=== PATIENT | male | born 1930 | race Caucasian/White ===

== ENCOUNTER 2017-10-15 10:40 | Inpatient (IN) | payer MEDICARE ==
[~2017-10-15] VITALS: Ht 167.6 cm; Wt 83.5 kg
[~2017-10-15 10:40] MED LIST: ALDACTAZID1 OR; ALEVE220 M1 PO; ASACOL400 MG PO; ASPIRIN EC81 MG PO; COMBIVENT IN; CRESTOR10 MG OR; CRESTOR10 MG PO; DULCOLAX SS100 MG PO; DULCOLAX STOOL SOFT PO; DULCOLAX5 MG PO; EC ASPIRIN325 MG PO; FLONASE NASAL50 MCG; LORCET HD 10-321 TAB PO; LORTAB 7.5 PO; LOSARTAN POT50 MG PO; METAMUCIL0.52 GM PO; METO25TAB PO; MORPHINE SUL15 MG PO; MUCINEX DM1 TAB OR; NAPROXEN250 MG PO; NASONEX50 MCG/AC; PERCOCET 10/31 COMBO PO; PERCOCET 5/325M1 TAB PO; PERCOCET1 TA4 PO; PRAVACHOL20 MG PO; PRAVASTATIN20 MG PO; PRILOSEC20 MG PO; PRIMIDONE50 MG PO; PROAIR HFA IN; REGLAN10 MG OR; RESTORIL15 MG PO; SPIRIVA IN; SYMBICORT1 AE1 IN; TRAMADOL HCL50 MG PO; TRICOR145 MG OR; TRICOR145 MG PO; TRIGLIDE160 MG PO; VICODIN HP1 TAB PO; VITAMIN D50000 UN1 PO; ZESTRIL10 MG PO; ZOLPIDEM10 MG OR; [UNRECOGNIZED DRUG - CODE] OR
--- NOTE | 2017-10-15 10:40 | NUR ---
TO ROOM 9 VIA STRETCHER BY EMS
--- NOTE | 2017-10-15 11:08 | NUR ---
CLEANED LACERATION AREA ON LEFT SIDE OF HEAD, SMALL PUNCTURE AREA WITH SWELLING WHERE PT HIT THE END TABLE WHEN HE FELL. PT DENIES PASSING OUT, STATES HE STARTED SHAKING MORE THAN NORMAL WHEN COMING OUT OF BATHROOM AND SLIPPED AND FELL.
[2017-10-15 11:28] LABS: HEMATOCRIT 43.3 % (39.0-50.0); HEMOGLOBIN 14.2 g/dl (14.0-18.0); IMMATURE GRANULOCYTES 0.4 % (0.0-1.0); MEAN CELL VOLUME 93.9 fL CALC (80.0-100.0); MEAN CORPUSCULAR HGB 30.8 pG CALC (26.0-32.0); MEAN CORPUSCULAR HGB CONC 32.8 g/L CALC (32.0-36.0); NEUT# 8.05 thou/uL (1.82-7.42); RED BLOOD COUNT 4.61 mill/uL (4.70-6.10); RED CELL DISTRI WIDTH 13.6 % (11.5-15.5)
--- NOTE | 2017-10-15 11:47 | NUR ---
PT BACK FROM XRAY
--- NOTE | 2017-10-15 11:56 | NUR ---
FAMILY AT BEDSIDE, PT REMAINS ALERT/ORIENTED X3, VERY TALKATIVE.
[2017-10-15 12:04] LABS: ALBUMIN 4.2 g/dL (3.2-5.0); BILIRUBIN, TOTAL 1.1 mg/dL (0.0-1.4); TOTAL PROTEIN 7.4 g/dL (6.3-8.2)
[2017-10-15 12:05] LABS: CREATININE 2.4 mg/dL (0.7-1.3); POTASSIUM 4.6 mmol/l (3.5-5.1)
[2017-10-15 12:46] LABS: URINE BLOOD DIPSTICK SMALL (NEGATIVE); URINE GLUCOSE - DIPSTICK NEGATIVE (NEGATIVE); URINE KETONE TRACE mg/dL (NEGATIVE); URINE LEUK ESTERASE NEGATIVE (NEGATIVE); URINE NITRITE - DIPSTICK NEGATIVE (Negative); URINE PROTEIN - DIPSTICK 30 mg/dL (NEG-TRACE)
[2017-10-15 12:47] LABS: URINE BILIRUBIN - DIPSTICK SMALL (NEGATIVE); URINE CLARITY SL CLOUDY; URINE COLOR DK. YELLOW
[2017-10-15 12:50] LABS: URINE EPITHELIAL CELLS MODERATE EPI/hpf (0-FEW); URINE MUCUS MODERATE hpf (NONE-FEW)
[2017-10-15] MEDS ORDERED: RYTARY 36.25-141 CAP PO (13:42)
--- NOTE | 2017-10-15 13:44 | NUR ---
PT RESTING QUIETLY, VITAL SIGNS STABLE
--- NOTE | 2017-10-15 14:02 | NUR ---
ADVISED TO PT THAT HE WOULD BE ADMITTED.
--- NOTE | 2017-10-15 14:28 | NUR ---
TRIED TO CALL REPORT, THEY STATED PRINTER IS BACKED UP AND SOON THEY GET THE SBAR THEY WILL CALL ME.
[2017-10-15 15:00] VITALS: BP 146/68
--- NOTE | 2017-10-15 15:00 | NUR ---
FROM ER VIA STRETCHER ACCOMPANIED BY FAMILY AND BRITTNI RN. TRANSFERRED TO BED WITH MAX ASSIST. RESPS EVEN AND UNLABORED ON ROOM AIR, TELE MONITOR IN PLACE. LACERATION NOTED TO LEFT SIDE HEAD, OCCIPITAL AREA, 1 STAPLE INTACT, RL, SCANT AMT REDDISH BROWN DRAINAGE NOTED. DENIES PAIN OR DISCOMFORT. ORIENTED TO ROOM AND CALL SYSTEM. SAFETY PRECAUTIONS REINFORCED. BED IN LOWEST POSITION WITH WHEELS LOCKED. CALL LIGHT WITHIN REACH. ENCOURAGED PT AND FAMILY TO CALL FOR ANY NEEDS.
--- NOTE | 2017-10-15 15:05 | NUR ---
PT TAKEN TO MED SURG FLOOR PER STRETCHER WITH TELEMETRY
[2017-10-15] MEDS ORDERED: FOLIC ACID1 MG PO (16:05)
--- NOTE | 2017-10-15 17:00 | NUR ---
ASSISTED TO BEDSIDE CHAIR WITH MAX ASSIST. RESPS EVEN AND UNLABORED ON ROOM AIR, TELE MONITOR IN PLACE. INCONTINENT OF LARGE AMT URINE, [facility] PROVIDED. CALL LIGHT WITHIN REACH. WILL CONTINUE TO MONITOR.
[2017-10-15 18:13] VITALS: BP 119/57
--- NOTE | 2017-10-15 19:50 | NUR ---
PT.IS IN BED W/LIGHTS LOW AND TV ON. NO S/S OF DISTRESS, PT.APPEARS TO BE SLEEPING. CALL LIGHT IS AT SIDE
--- NOTE | 2017-10-15 22:40 | NUR ---
ASSISTED PT.TO SIDE OF BED FOR USE OF URINAL, EMPTIED OF 100CC LIGHT DEMETRICE CLEAR URINE. PT.ASSISTED BACK TO BED AND BED ALARM PLACED ON. CALL LIGHT W/IN REACH
--- NOTE | 2017-10-16 00:15 | NUR ---
ED CALLED TO REPORT PT.SHOWING PAUSE/POSSIBLE BLOCK ON STAFF COUNSELOR. V/S ASSESSED, PT.ASYMPTOMATIC, EKG ORDERED WHICH SHOWED PVC'S SAME PREVIOUS EKG.
[2017-10-16 00:50] VITALS: BP 126/63
[2017-10-16 05:17] LABS: HEMATOCRIT 39.5 % (39.0-50.0); HEMOGLOBIN 13.1 g/dl (14.0-18.0); MEAN CELL VOLUME 93.4 fL CALC (80.0-100.0); MEAN CORPUSCULAR HGB CONC 33.2 g/L CALC (32.0-36.0); RED BLOOD COUNT 4.23 mill/uL (4.70-6.10); RED CELL DISTRI WIDTH 13.2 % (11.5-15.5)
[2017-10-16 05:23] LABS: ANION GAP 16 (6-22 (CALC)); BUN 29 mg/dL (8-23); BUN/CREATININE RATIO 29 (12-20 (CALC)); CARBON DIOXIDE 21 mmol/l (22-30); CHLORIDE 110 mmol/l (95-108); SODIUM 143 mmol/l (137-146)
[2017-10-16 05:32] LABS: GFR > 60 ML/MIN (>=60 (CALC)); GFR FOR AFR.AMER. > 60 ML/MIN (>=60 (CALC))
[2017-10-16 06:35] VITALS: BP 137/59
--- NOTE | 2017-10-16 07:00 | NUR ---
RECEIVED BEDSIDE REPORT FROM SHARON KURTZ. IN HIGH FOWLERS WATCHING TV. RESPS EVEN AND UNLABORED ON ROOM AIR, TELE MONITOR IN PLACE. #20 LAC INFUSING WITHOUT DIFFICULTY, SITE APPEARS HEALTHY. DENIES PAIN OR DISCOMFORT. PLAN OF CARE DISCUSSED. SAFETY PRECAUTIONS REINFORCED. BED IN LOWEST POSITION WITH WHEELS LOCKED. BED ALARM ON FOR SAFETY. CALL LIGHT WITHIN REACH. ENCOURAGED PT TO CALL FOR ANY NEEDS.
[2017-10-16 08:08] VITALS: BP 137/58
--- NOTE | 2017-10-16 09:30 | NUR ---
PT WAS ASSISTED BY REALTY SPECIALIST TO THE SHOWER AND WITH WALKER. PT HAS STEADY GAIT. PT WAS TOLD NOT TO GET UP UNLESS HE PULLS THE CORD PER THE FLOOR BEING SLICK. PT ALSO TOLD TO PULL THE CORD IF HE HAS ANY QUESTIONS OR COMMENTS OR CONCERNS. PT THEN WALKED BACK TO CHAIR WITH WALKER AND REALTY SPECIALIST. PT PLACED ON TELE AT THIS TIME. PT HAD NO COMPLAINTS. CALL LUNA IN REACH WITH BED ALARM IN PLACE PRECAUTION WELL.
--- NOTE | 2017-10-16 10:38 | NUR ---
Pharmacy consult requested by AMADA Hutchins. Reviewed inpatient and outpatient medications with pt. Significant other helps with medications at home. No othe questions or concerns. Encouraged pt to verbalize questions or concerns related to medications should they arise.
[2017-10-16 11:00] VITALS: BP 135/66
--- NOTE | 2017-10-16 12:35 | NUR ---
SITTING IN BEDSIDE CHAIR, FAMILY AT BEDSIDE. RESPS EVEN AND UNLABORED ON ROOM AIR, TELE MONITOR IN PLACE. #20 LAC INFUSING WITHOUT DIFFICULTY, SITE APPEARS HEALTHY. DR CHAVIRA AT BEDSIDE, NEW ORDERS RECEIVED. CALL LIGHT WITHIN REACH. ENCOURAGED PT AND FAMILY TO CALL FOR ANY NEEDS.
--- NOTE | 2017-10-16 16:00 | NUR ---
RESTING IN SEMI FOWLERS WATCHING TV. RESPS EVEN AND UNLABORED ON ROOM AIR, TELE MONITOR IN PLACE. #20 LAC INFUSING WITHOUT DIFFICULTY, SITE APPEARS HEALTHY. PO FLUIDS OFFERED. CALL LIGHT WITHIN REACH. WILL CONTINUE TO MONITOR.
[2017-10-16 16:05] VITALS: BP 149/70
[2017-10-16 19:00] VITALS: BP 140/63
--- NOTE | 2017-10-16 19:30 | NUR ---
BEDSIDE REPORT RECEIVED FROM JERARDO MARIE. PT RESTING IN BED SEMI FOWLERS WATCHING TV. DENIES PAIN CURRENTLY. LACERATION TO LEFT SIDE OF HEAD RL WITH ONE STAPLE PRESENT. RESPIRATIONS EVEN AND UNLABORED ON ROOM AIR. PLAN OF CARE DISCUSSED. PT ENCOURAGED TO VERBALIZE CONCERNS. STATES UNDERSTANDING. SAFETY MEASURES IN PLACE. CALL LIGHT WITHIN REACH.
[2017-10-17] VITALS (9 sets, daily range): BP systolic 126–188; BP diastolic 59–83
--- NOTE | 2017-10-17 00:07 | NUR ---
PT FOUND ATTEMPTING TO GET OUT OF BED UNASSISTED BEFORE BED ALARM SOUNDED. PT DISORIENTED AND STATES THAT HE SEES "THINGS" CRAWLING AROUND ON THE GROUD THAT ARE NOT THERE; PT LAUGHING ABOUT THIS. EASILY REORIENTED AND ASSITED TO THE BATHROOM TO VOID. DENIES PAIN. ASSISTED BACK TO BED. SAFETY MEASURES IN PLACE INCLUDING BED ALARM. CALL LIGHT WITHIN REACH.
--- NOTE | 2017-10-17 03:58 | NUR ---
PT UP TO VOID SEVERAL TIMES THROUGHOUT THE NIGHT; DOES NOT USE CALL LIGHT; BED ALARM SOUNDS WHEN PT ATTEMPTS TO GET OUT OF BED. DENIES PAIN CURRENLTY. RESPIRATIONS EVEN AND UNLABORED ON ROOM AIR. NO ACUTE CHANGES IN CONDITION THROUGHOUT THE NIGHT. IV FLUIDS INFUSING WITHOUT DIFFICULTY; IV SITE APPEARS HEALTHY. SAFETY MEASURES IN PLACE. CALL LIGHT WITHIN REACH.
[2017-10-17 05:06] LABS: HEMATOCRIT 41.1 % (39.0-50.0); HEMOGLOBIN 13.6 g/dl (14.0-18.0); IMMATURE GRANULOCYTES 0.3 % (0.0-1.0); MEAN CORPUSCULAR HGB 30.8 pG CALC (26.0-32.0); MEAN CORPUSCULAR HGB CONC 33.1 g/L CALC (32.0-36.0); NEUT# 5.24 thou/uL (1.82-7.42); RED BLOOD COUNT 4.42 mill/uL (4.70-6.10); RED CELL DISTRI WIDTH 13.2 % (11.5-15.5)
[2017-10-17 05:21] LABS: ANION GAP 17 (6-22 (CALC)); BUN 16 mg/dL (8-23); BUN/CREATININE RATIO 21 (12-20 (CALC)); CARBON DIOXIDE 23 mmol/l (22-30); CHLORIDE 109 mmol/l (95-108); CREATININE 0.8 mg/dL (0.7-1.3); GFR > 60 ML/MIN (>=60 (CALC)); GFR FOR AFR.AMER. > 60 ML/MIN (>=60 (CALC)); POTASSIUM 4.2 mmol/l (3.5-5.1); SODIUM 145 mmol/l (137-146)
[2017-10-17 05:30] LABS: MAGNESIUM 1.3 mg/dL (1.6-2.3)
--- NOTE | 2017-10-17 06:34 | NUR ---
PT AWAKENED WITH CONFUSION; REORIENTED AND ORTHOSTATIC VS PERFORMED. BLOOD PRESSURE ELEVATED AT THIS TIME AND HYDRALAZINE ADMINISTERED. PT ALSO STARTED WHEEZING AND REQUESTED HIS HOME INHALER; ORDER RECEIVED FROM TO RESTART PROAIR INHALER.
--- NOTE | 2017-10-17 07:05 | NUR ---
BEDSIDE REPORT RECEIVED BY FRANNY. PT IS SITTING IN RECLINER WITH NO S/S OF DISTRESS NOTED. BED ALARM IN PLACE AND CALL LIGHT IN REACH.
--- NOTE | 2017-10-17 08:05 | NUR ---
ASSESSMENT DONE. LUNG SOUND DIMINISHED. NS INFUSING WELL. PT DENIES PAIN AT THIS TIME. TELE IN PLACE. HEAD RL HAS ONE STAPLE. BED ALARM IN PLACE FOR SAFETY. SAFETY PRECAUTIONS REINFORCED AND CALL LIGHT IN REACH.
--- NOTE | 2017-10-17 11:20 | NUR ---
IN THE AM ASSESSMENT PT WAS A&O X3. NOW PT IS CONFUSED SITTING IN RECLINER WITH BEDALARM IN PLACE FOR SAFETY. DAUGHTER IS IN ROOM. JANEE JONES IN ROOM TO ASSESS PT. CALL LIGHT IN REACH.
--- NOTE | 2017-10-17 12:00 | NUR ---
PT IS SITTING IN RECLINER EATING HIS LUNCH WITH NO S/S OF DISTRESS NOTED. PT DENIES NEEDS AT THIS TIME. CALL LIGHT IN REAC AND BEDALARM IN PLACE.
--- NOTE | 2017-10-17 13:00 | NUR ---
PT SET BEDALARM OFF. PT STATED THAT HE WANTS TO SIT IN RECLINER. ASSISTED PT TO RECLINER AND BED ALARM IN PLACE. PT IS CONFUSED.PT DENIES ANY ANOTHER NEEDS NEEDS AT THIS TIME. CALL LIGHT IN REACH.
--- NOTE | 2017-10-17 15:51 | NUR ---
MEDICATED PT WITH HALDOL PER JANEE JONES FOR AGITATION THAT HAS INCREASE. BED ALARM IN PLACE AND CALL LIGHT IN REACH.
--- NOTE | 2017-10-17 17:00 | NUR ---
PT IS SLEEPING IN RECLINER WITH NO S/S OF DISTRESS NOTED. BED ALARM IN PLACE AND CALL LIGHT IN REACH.
--- NOTE | 2017-10-17 20:20 | NUR ---
PT WAS GIVEN HALDOL PRIOR TO REPORT. PT RESTING IN BED WITH EYES CLOSED. RESP EVEN AND UNLABORED. LUNGS CLEAR BILAT. ABD SOFT AND NONDISTENDED WITH BOWEL SOUNDS PRESENT. NO LOWER EXT EDEMA NOTED. PEDAL PULSES PALPATED BILAT. IV SITE PATENT IN RT A.C NO REDNESS OR SWELLING AT SITE. IVF NSS AT KVO. TELE READING SB HR 57 PAC'S AND PVC'S PER E.R. BED ALARM IS ON FOR PTS SAFETY. NO DISTRESS NOTED. FREQUENT ROUNDS MADE. WILL CONTINUE TO CLOSELY MONITOR. FREQUENT ROUNDS MADE. CALL LUNA WITHIN REACH.
--- NOTE | 2017-10-17 22:30 | NUR ---
PT AWAKE RESTING IN BED. PT IS PLEASANTLY CONFUSED. RESP EVEN AND UNLABORED. MEDICATED WITH HS MEDS. DINNER TRAY WARMED AND ASSISTED WITH EATING HIS DINNER. PT OFFERS NO COMPLAINTS. VOIDED 250CC OF CLEAR CASPER URINE. OFFERS NO COMPLAINTS. ASSISTED WITH DINNER TRAY. WILL CONTINUE TO COSELY MONITOR. WHEEL ALIGNER WITH PT. CALL LUNA WITHIN REACH.
--- NOTE | 2017-10-17 23:07 | NUR ---
PT WOKE. VSS. B/P STABLE. PT IS PLEASANT AND COOPERATIVE. BED ALARM IS ON FOR PTS SAFETY. IV SITE PATENT. FREQUENT ROUNDS MADE. CALL LUNA WITHIN REACH.
--- NOTE | 2017-10-18 00:16 | NUR ---
PT RESTING IN BED WITH EYES CLOSED. RESP EVEN AND UNLABORED. NO DISTRESS NOTED. IV SITE PATENT. BED ALARM IS ON FOR PTS SAFETY. FREQUENT ROUNDS MADE. CALL LUNA WITHIN REACH.
--- NOTE | 2017-10-18 02:12 | NUR ---
PT AWAKE. ASSISTED WITH USING URINAL. RESP EVEN AND UNLABORED. IV SITE PATENT. ASSISTED WITH REPOSITIONING. BED ALARM IS ON. FREQUENT ROUNDS MADE. PT OFFERS NO COMPLAINTS. CALL LUNA WITHIN REACH.
[2017-10-18 04:30] VITALS: BP 134/72
--- NOTE | 2017-10-18 04:43 | NUR ---
PT WOKE FOR LABS AND MORNING VITALS. VSS. RESP EVEN AND UNLABORED. ASSESSMENT UNCHANGED. IV SITE PATENT IN RT A.C NO REDNESS OR SWELLING AT SITE. TELE INTACT. BED ALARM REMAINS ON. FREQUENT ROUNDS MADE. CALL LUNA WITHIN REACH.
[2017-10-18 05:03] LABS: ANION GAP 15 (6-22 (CALC)); BUN 10 mg/dL (8-23); BUN/CREATININE RATIO 16 (12-20 (CALC)); CARBON DIOXIDE 25 mmol/l (22-30); CHLORIDE 107 mmol/l (95-108); CREATININE 0.6 mg/dL (0.7-1.3); GFR > 60 ML/MIN (>=60 (CALC)); GFR FOR AFR.AMER. > 60 ML/MIN (>=60 (CALC)); POTASSIUM 3.9 mmol/l (3.5-5.1); SODIUM 143 mmol/l (137-146)
[2017-10-18 05:06] LABS: MAGNESIUM 1.8 mg/dL (1.6-2.3)
[2017-10-18 05:10] LABS: IMMATURE GRANULOCYTES 0.1 % (0.0-1.0); MEAN CELL VOLUME 92.4 fL CALC (80.0-100.0); MEAN CORPUSCULAR HGB 30.8 pG CALC (26.0-32.0); MEAN CORPUSCULAR HGB CONC 33.3 g/L CALC (32.0-36.0); NEUT# 4.27 thou/uL (1.82-7.42); RED BLOOD COUNT 4.22 mill/uL (4.70-6.10); RED CELL DISTRI WIDTH 13.2 % (11.5-15.5)
--- NOTE | 2017-10-18 07:00 | NUR ---
SHIFT CHANGE REPORT FROM ADRIA PT SLEEPING IN SUPINE POSITION, BREATHING EVEN AND NON-LABORED, TELE MONITOR IN PLACE, NO SIGN DISCOMFORT, BED ALARM ON, CALL LUNA IN REACH.
[2017-10-18 10:49] VITALS: BP 168/80
[2017-10-18 12:30] VITALS: BP 105/56
--- NOTE | 2017-10-18 13:00 | NUR ---
PHYSICAL THERAPIST HERE TO EVAL AND TREAT, PT AMBULATED HALLWAYS WITH STAFF THEN SETTLED BACK IN RECLINER.
[2017-10-18 16:00] VITALS: BP 140/68
--- NOTE | 2017-10-18 16:00 | NUR ---
PTS DAUGHTER REQUESTED NOT TO GIVE ATIVAN AND STATED PT HAD NOT BEEN CONFUSED AND SHE THINKS HIS CONFUSED STATE OCCURED A RESULT OF HIM NOT GETTING HIS VITAMINS, HOE MEDS WERE BROUGHT IN AND PT RESTARTED TAKING THEM AFTER MD AND PHARMACY APPROVED, WILL CONTINUE TO MONITOR.
--- NOTE | 2017-10-18 16:30 | NUR ---
PATIENT UP IN CHAIR, ALERT AND COOPERATIVE. SIT TO STAND ON 2ND TRY WITH V.CNando'S FOR ANT WS WT CGA FOR SAFETY. AMB WITH RW 80 FEET WITHOUT LOB WITH SMALL STEP LENGTH. STAND TO SIT WITH A FOR SAFETY IN MOTOR PLANNING AND ASSIST WITH HAND PLACEMENT. LONG DISCUSSION WITH PATIENT REGARDING BENEFIT OF SHORT TERM INPATIENT REHAB. HIS DAUGHTER IS PRESENT AND REPORTS HAVING CHECK OUT A FACILITY SHE BELIEVES HIS INSURANCE COVERS. PATIENT IS UPSET HE FEELS HE CAN RETURN HOME HE HAS "EVERYTHING HE NEEDS THERE." HIS DAUGHTER LIVES VERY CLOSE TO HIM IN [place]. THEY HAVE AN INTERCOM SYSTEM. HE WAS ENCOURAGED TO CONSIDER INPATIENT HE HAD DIFFICULTY WITH SIT TO STAND TRANSFERS AND IS NOT YET "HIMSELF". CHAIR ALARM REPLACED AND PATIENT LEFT WITH HIS NURSE WHO WAS IN TO OBSERVE HIS MOBILITY.
[2017-10-18 19:22] VITALS: BP 164/68
--- NOTE | 2017-10-18 21:28 | NUR ---
SITTING UP IN RECLINER, ALL NEEDS MET, CALL LUNA IN REACH.
--- NOTE | 2017-10-18 22:33 | NUR ---
PT.WAS SLEEPING UPON ENTERING ROOM,BUT AWOKE TO MY VOICE. PT.MEDICATED AND ASSESSED AT THIS TIME. PT.LUNG SOUNDS ARE DIM/CLEAR, NO EDEMA NOTED AT THIS TIME, PT.IS LOC SELF//LOCATION. DENIES ANY PAIN AND NO S/S OF DISTRESS AT THIS TIME. CALL LIGHT IS W/IN REACH AND PT.INSTRUCTED TO CALL IF ANY NEEDS ARISE.
[2017-10-18 23:49] VITALS: BP 152/74
--- NOTE | 2017-10-19 00:15 | NUR ---
PT.UP TO RESTROOM W/ASSISTANCE OF VENEER REDRIER. WE CHANGED LINENS AT THIS TIME. PT.DENIES ANY OTHER NEEDS AND HAS BEEN ASSISTED BACK TO BED. PT.LEFT W/CALL LIGHT AT SIDE, BED ALARM ON.
[2017-10-19 03:50] VITALS: BP 148/82
--- NOTE | 2017-10-19 04:10 | NUR ---
PT.ASSISTED TO RESTROOM AND BACK TO BED. NO S/S OF DISTRESS. PT.DENIES PAIN AT THIS TIME. PT.LUNG SOUNDS ARE WHEEZY LOWER AND MID LEFT POSTERIOR. NO S/O CONFUSION AT THIS TIME. CALL LIGHT W/IN REACH AND PT.REMINDED TO CALL FOR ASSISTANCE NEEDED. BED ALARM ON
--- NOTE | 2017-10-19 07:00 | NUR ---
SHIFT CHANGE REPORT FORM SHARON, LUKE AWAKE ALERT AND ORIENTED SITTING UP IN RECLINER, DENIES DISCOMFORT, IVF INFUSING, CALL LUNA IN REACH.
[2017-10-19 10:08] VITALS: BP 154/62
[2017-10-19 11:53] VITALS: BP 150/79
--- NOTE | 2017-10-19 12:00 | NUR ---
DAUGHTER REPORTED PT BEING CONFUSED AT THIS TIME, NURSE DID NOT OBSERVE ANY CONFUSION, DAUGHTER ALSO QUESTIONED WHETHER OR NOT HE HAD ANY ANTI-ANXIETY MEDS, INFORMED OF CURRENT ORDERS. PT SITTING UP IN RECLINER, ATE MEAL, CONVERSING WITH VISITIOS, NO C/O DISCOMFORT, CALL LUNA IN REACH.
--- NOTE | 2017-10-19 15:41 | NUR ---
ASSISTED TO AND FROM BR AND WITH [facility], SETTLED IN BED FOR AFTERNOON REST, CALL LUNA IN REACH.
[2017-10-19 16:57] VITALS: BP 159/80
[2017-10-19 19:40] VITALS: BP 160/84
--- NOTE | 2017-10-19 20:00 | NUR ---
PATIENT SITTING UP IN THE RECLINER AT THIS TIME-AWAKE ALERT AND ORIENTEDX2. SAFETY ALARM IN PLACE FOR PATIENT SAFETY. IVF NS PATENT AND INFUSING AT KVO RATE. SITE APPEARS HEALTHY AT THIS TIME. VOIDING QS IN URINAL WITH ASSIST. CALL LIGHT IN REACH. WILL CONT TO MONITOR.
[2017-10-20 00:15] VITALS: BP 148/79
--- NOTE | 2017-10-20 00:15 | NUR ---
BED ALARM IS GOING OFF-RESPONDED TO THE ROOM AND PATIENT IS ATTEMPTING TO GET OOB-STATES THAT HE HAS TO GET READY TO GO TO [facility]. ATTEMPT MADE TO REORIENT PATIENT-HE WILL BE GOING TO SNF ON SATURDAY NOT THIS MORNING. ASSISTED BACK TO BED. IVF REMAIN AT KVO RATE TO RIGHT AC. SITE APPEARS HEALTHY AT THIS TIME. CALL LIGHT IN REACH. WILL CONT TO MONITOR.
--- NOTE | 2017-10-20 00:59 | NUR ---
BED ALARM GOING OFF-PATIENT ATTEMPTING TO GET OOB-STATES THAT HE HAS TO GO TO THE BR-ASSISTED TO THE BR USING WALKER-UNSTEADY GAIT. VOIDED QS IN BR-RETURNED TO BED AND BED ALARM REAPPLIED. CALL LIGHT IN REACH. WILL CONT TO MONITOR.
--- NOTE | 2017-10-20 03:53 | NUR ---
PATIENT SAFETY ALARMING FREQUENTLY. PATIENT ASSISTED TO RECLINER WITH SAFETY ALARM IN PL [facility]. PATIENT IS CONFUSED AT TIMES-WANTS TO GO TO REHAB, WANTS TO GO HOME. CALL LIGHT IN REACH. WILL CONT TO MONITOR.
--- NOTE | 2017-10-20 05:00 | NUR ---
PATIENT CONT TO BE VERY RESTLESS AND PULL IV SITE OUT. NEW IV SITE STARTED TO LEFT FOREARM-#22 GAUGE WITH GOOD BLOOD RETURN. APRESOLINE 10MG IVP GIVEN FOR HTN. IVF PATENT AND INFUSING AT 20CC/HR. SITTING UP IN THE RECLINE WITH SAFETY ALARM IN PLACE FOR PATIENT SAFETY. CALL LIGHT IN REACH. WILL CONT TO MONITOR.
[2017-10-20 05:12] VITALS: BP 172/78
[2017-10-20 08:10] VITALS: BP 173/65
--- NOTE | 2017-10-20 08:10 | NUR ---
PT IS SITTING UP IN THE CHAIR. NO DISTRESS NOTED. IV SITE IS FREE FROM REDNESS OR EDEMA. HR IS REG, PULSES ARE STRONG X4,A BD IS SOFT WITH ACTIVE BS. TELE MONITOR IN PLACE. CONTINUE TO OSBERVE AND MONITOR.
--- NOTE | 2017-10-20 08:37 | NUR ---
SPOKE WITH DAUGHTER RE: WAYNE , IS IN THE CLOSET.
[2017-10-20 11:09] VITALS: BP 150/71
--- NOTE | 2017-10-20 12:45 | NUR ---
PT IS SITTING UP IN THE CHAIR. NO DISTRESS NOTED. IV SIT IS FREE FROM REDNESS OR EDMA. CONTINUE TO OBSERVE AND MONITOR.
[2017-10-20 15:18] VITALS: BP 175/80
--- NOTE | 2017-10-20 16:15 | NUR ---
PT IS RELAXING IN CHAIR, NO DISTRESS NOTED., IV SITE IS FREE FROM REDNESS OR EDEMA. CONTINUE TO OBSERVE AND MONITOR.
[2017-10-20 19:00] VITALS: BP 120/54
--- NOTE | 2017-10-20 19:51 | NUR ---
PATIENT SITTING UP IN THE RELCINER WITH SAFETY ALARM IN PLACE FOR PATIENT SAFETY. PATIENT IS ORIENTED TO PERSON AND PLACE AT THIS TIME. IV SITE TO LEFT FOREARM IN PLACE WITH IVF NS AT 20CC/HR. SITE APPEARS HEALTHY AT THIS TIME. CALL LIGHT IN REACH. WILL CONT TO MONITOR.
--- NOTE | 2017-10-20 21:48 | NUR ---
PATIENT RESTING IN BED WITH EYES CLOSED-APPEARS SLEEPING AT THIS TIME. BED ALARM IN PLACE FOR PATIENT SAFETY. CALL LIGHT IN REACH. WILL CONT TO MONITOR.
[2017-10-21 00:20] VITALS: BP 176/76
--- NOTE | 2017-10-21 00:22 | NUR ---
BP ELEVATED-MEDICTED WITH APRESOLINE 10 MG IVP. PATIENT IS AWAKE AND SITTING UP IN THE RECLINER AT THIS TIME. SAFETY ALARM IN PLACE FOR PATIENT SAFETY. CALL LIGHT IN REACH. WILL CONT TO MONITOR.
--- NOTE | 2017-10-21 04:00 | NUR ---
PATIENT BACK IN BED AND APPEARS SLEEPING WITH EYES CLOSED AND RESP EVEN AND UNLABORED. BED ALARMS IN PLACE FOR PATIENT SAFETY. CALL LIGHT IN REACH. WILL CONT TO MONITOR.
[2017-10-21 04:20] VITALS: BP 133/61
[2017-10-21 05:26] LABS: HEMATOCRIT 42.8 % (39.0-50.0); HEMOGLOBIN 14.2 g/dl (14.0-18.0); IMMATURE GRANULOCYTES 0.3 % (0.0-1.0); MEAN CELL VOLUME 91.6 fL CALC (80.0-100.0); MEAN CORPUSCULAR HGB 30.4 pG CALC (26.0-32.0); MEAN CORPUSCULAR HGB CONC 33.2 g/L CALC (32.0-36.0); NEUT# 5.41 thou/uL (1.82-7.42); RED BLOOD COUNT 4.67 mill/uL (4.70-6.10); RED CELL DISTRI WIDTH 13.2 % (11.5-15.5)
[2017-10-21 05:46] LABS: ANION GAP 19 (6-22 (CALC)); BUN 11 mg/dL (8-23); BUN/CREATININE RATIO 16 (12-20 (CALC)); CARBON DIOXIDE 26 mmol/l (22-30); CHLORIDE 101 mmol/l (95-108); CREATININE 0.7 mg/dL (0.7-1.3); GFR > 60 ML/MIN (>=60 (CALC)); GFR FOR AFR.AMER. > 60 ML/MIN (>=60 (CALC)); POTASSIUM 3.9 mmol/l (3.5-5.1); SODIUM 142 mmol/l (137-146)
--- NOTE | 2017-10-21 07:00 | NUR ---
RECEIVED BEDSIDE REPORT FROM RICCARDO KURTZ. SITTING IN BEDSIDE CHAIR. RESPS EVEN AND UNLABORED ON ROOM AIR, TELE MONITOR IN PLACE. #22 LFA INFUSING WITHOUT DIFFICULTY, SITE APPEARS HEALTHY. DENIES PAIN OR DISCOMFORT. PLAN OF CARE DISCUSSED. SAFETY PRECAUTIONS REINFORCED. BED ALARM ON FOR SAFETY. BED IN LOWEST POSITION WITH WHEELS LOCKED. CALL LIGHT WITHIN REACH. ENCOURAGED PT TO CALL FOR ANY NEEDS.
[2017-10-21 08:19] VITALS: BP 133/69
--- NOTE | 2017-10-21 11:50 | NUR ---
PT WAS SEEN COMFORTABLY SITTING IN THE RECLINER. STATES THAT HE WAS FEELING BETTER TODAY. PT STOOD UP WITH SBA AND RW. PT THEN AMBULATED FROM RECLINER TO BED WITH RW AND CGA. PT APPEARED STABLE, STATES THAT THE ONLY ISSUE HE IS HAVING IS HIS TENDENCY TO FALL BACKWARD DURING AMB. FALL PRECAUTION WAS REINFORCED, INSTRUCTED PT ON PROPER AND SAFE TRANSFERS AND AMB. PT INDEPENDENTLY ASSUMED SUPINE ON BED. NO ADVERSE RXNS SEEN OR REPORTED AT THE END OF TX.
[2017-10-21 12:17] VITALS: BP 116/47
--- NOTE | 2017-10-21 13:05 | NUR ---
DR CHAVIRA AT BEDSIDE, FAMILY AT BEDSIDE, NEW ORDERS RECEIVED.
[2017-10-21 15:07] VITALS: BP 153/52
--- NOTE | 2017-10-21 16:20 | NUR ---
RESTING IN HIGH FOWLERS WITH EYES CLOSED, AWAKENS EASILY. RESPS EVEN AND UNLABORED ON ROOM AIR, TELE MONITOR IN PLACE. #22 LFA INFUSING WITHOUT DIFFICULTY, SITE APPEARS HEALTHY. DENIES PAIN OR DISCOMFORT. CALL LIGHT WITHIN REACH. BED ALARM ON FOR SAFETY. WILL CONTINUE TO MONITOR.
--- NOTE | 2017-10-21 19:16 | NUR ---
PATIENT RESTING IN BED-AWAKE ALERT AND ORIENTEDX3. IVF D/C'ED ORDERED. IV SITE IS HEALTHY WITH GOOD BLOOD RETURN. NO COMPLAINTS AT THIS TIME. BED ALARM IN PLACE FOR PATIENT SAFETY. REINFORCED SAFETY PRECAUTIONS WITH PATIENT. CALL LIGHT IN REACH. WILL CONT TO MONITOR.
[2017-10-21 23:47] VITALS: BP 161/73
--- NOTE | 2017-10-22 00:06 | NUR ---
RESTING IN BED AND APPEARS SLEEPING AT THIS TIME WITH EYES CLOSED. RESP ARE EVEN AND UNLABORED. BED ALARM IN PLACE FOR PATIENT SAFETY. CALL LIGHT IN REACH. WILL CONT TO MONITOR.
--- NOTE | 2017-10-22 01:25 | NUR ---
PATIENT CALLED FOR ASSIST TO GO TO THE BR-USING WALKER WITH SB ASSIST. PATIENT SEEMS MORE STEADY TONIGHT. VOIDED AND THEN BACK TO THE BED. SAFETY PRECAUTIONS REINFORCED. CALL LIGHT IN REACH. WILL CONT TO MONITOR.
--- NOTE | 2017-10-22 04:30 | NUR ---
PATIENT RESTING IN BED WITH NO COMPLAINTS. PATIENT USING CALL LIGHT TONIGHT AND HASN'T SET THE BED ALARM OFF THIS SHIFT. CALL LIGHT IN REACH. WILL CONT TO MONITOR.
[2017-10-22 04:42] VITALS: BP 160/78
[2017-10-22 04:46] LABS: HEMATOCRIT 42.8 % (39.0-50.0); MEAN CELL VOLUME 92.8 fL CALC (80.0-100.0); MEAN CORPUSCULAR HGB 30.4 pG CALC (26.0-32.0); MEAN CORPUSCULAR HGB CONC 32.7 g/L CALC (32.0-36.0); RED BLOOD COUNT 4.61 mill/uL (4.70-6.10); RED CELL DISTRI WIDTH 13.3 % (11.5-15.5)
[2017-10-22 05:02] LABS: ANION GAP 17 (6-22 (CALC)); BUN 12 mg/dL (8-23); BUN/CREATININE RATIO 17 (12-20 (CALC)); CARBON DIOXIDE 28 mmol/l (22-30); CHLORIDE 101 mmol/l (95-108); CREATININE 0.7 mg/dL (0.7-1.3); GFR > 60 ML/MIN (>=60 (CALC)); GFR FOR AFR.AMER. > 60 ML/MIN (>=60 (CALC)); POTASSIUM 4.1 mmol/l (3.5-5.1); SODIUM 141 mmol/l (137-146)
[2017-10-22 05:07] LABS: MAGNESIUM 1.8 mg/dL (1.6-2.3)
--- NOTE | 2017-10-22 07:00 | NUR ---
RECEIVED BEDSIDE REPORT FROM RICCARDO KURTZ. SITTING IN BEDSIDE CHAIR, RESPS EVEN AND UNLABORED ON ROOM AIR, TELE MONITOR IN PLACE. DENIES PAIN OR DISCOMFORT. PO FLUIDS OFFERED. PLAN OF CARE DISCUSSED. SAFETY PRECAUTIONS REINFORCED. BED IN LOWEST POSITION WITH WHEELS LOCKED. BED ALARM ON FOR SAFETY. CALL LIGHT WITHIN REACH. ENCOURAGED PT TO CALL FOR ANY NEEDS.
[2017-10-22 07:21] VITALS: BP 148/71
[2017-10-22 11:18] VITALS: BP 165/80
--- NOTE | 2017-10-22 12:00 | NUR ---
SITTING IN BEDSIDE CHAIR EATING LUNCH, DAUGHTER AT BEDSIDE. RESPS EVEN AND UHNLABORED ON ROOM AIR, TELE MONITOR IN PLACE. VOICES NO NEEDS AT THIS TIME. BED ALARM ON FOR SAFETY. CALL LIGHT WITHIN REACH. WILL CONTINUE TO MONITOR.
--- NOTE | 2017-10-22 15:06 | NUR ---
IV site discontinued, cath intact. No edema , no redness, voices no discomfort.
--- NOTE | 2017-10-22 16:00 | NUR ---
Discharge instructions given. Patient verbalizes understanding of same. Discharged in stable condition via Wheelchair to Home with family. All belongings sent with pt.
== END 2017-10-22 16:00 | DRG 683 ==
LOC: ED 10:40 → ED-I 13:25 → ED 13:34 → MS2 13:35
PROVIDERS: Emergency Medicine; Nurse Practitioner Family; ADMIT Internal Medicine; ATTEND Internal Medicine
PROC: 0HQ0XZZ Repair Scalp Skin, External Approach (ICD-10-PCS; principal; 2017-10-15)
DX: N17.9 Acute kidney failure, unspecified (principal); F02.81 Dementia in other diseases classified elsewhere, unspecified severity, with behavioral disturbance; G20 Parkinson's disease; E83.42 Hypomagnesemia; E86.0 Dehydration; I11.9 Hypertensive heart disease without heart failure; J44.9 Chronic obstructive pulmonary disease, unspecified; E78.5 Hyperlipidemia, unspecified; S01.01XA Laceration without foreign body of scalp, initial encounter; K21.9 Gastro-esophageal reflux disease without esophagitis; I25.10 Atherosclerotic heart disease of native coronary artery without angina pectoris; M15.9 Polyosteoarthritis, unspecified; W01.190A Fall on same level from slipping, tripping and stumbling with subsequent striking against furniture, initial encounter; Y92.009 Unspecified place in unspecified non-institutional (private) residence as the place of occurrence of the external cause; Z91.81 History of falling
CPT/HCPCS: J2060; J3475

== ENCOUNTER → 2018-08-08 | Outpatient (REF) | payer MEDICARE ==
[~2018-08-08] MED LIST changes: +FOLIC ACID1 MG PO; +RYTARY 36.25-141 CAP PO
== END | disposition home or self-care (01) ==
LOC: DI 10:59
PROVIDERS: ATTEND Nurse Practitioner
DX: R05 Cough (principal)

== ENCOUNTER 2019-08-22 | Emergency (ER) | payer MEDICARE ==
[2019-08-22 18:55] LABS: HEMATOCRIT 44.5 % (39.0-50.0); HEMOGLOBIN 14.6 g/dl (14.0-18.0); IMMATURE GRANULOCYTES 0.5 % (0.0-5.0); MEAN CELL VOLUME 92.1 fL CALC (80.0-100.0); MEAN CORPUSCULAR HGB 30.2 pG CALC (26.0-32.0); MEAN CORPUSCULAR HGB CONC 32.8 g/L CALC (32.0-36.0); NEUT# 8.63 thou/uL (1.82-7.42); RED BLOOD COUNT 4.83 mill/uL (4.70-6.10); RED CELL DISTRI WIDTH 12.9 % (11.5-15.5)
[2019-08-22 19:21] LABS: ALBUMIN 4.3 g/dL (3.2-5.0); ALKALINE PHOSPHATASE 74 u/l (38-126); ANION GAP 11 (6-22 (CALC)); BILIRUBIN, TOTAL 0.7 mg/dL (0.0-1.4); BUN 21 mg/dL (8-23); BUN/CREATININE RATIO 23 (12-20 (CALC)); CARBON DIOXIDE 31 mmol/l (22-30); CHLORIDE 101 mmol/l (95-108); CREATININE 0.9 mg/dL (0.7-1.3); GFR > 60 ML/MIN (>=60 (CALC)); GFR FOR AFR.AMER. > 60 ML/MIN (>=60 (CALC)); SODIUM 139 mmol/l (137-146); TOTAL PROTEIN 7.4 g/dL (6.3-8.2)
[2019-08-22 19:25] LABS: SGOT/AST 25 u/l (19-48)
[2019-08-22 19:34] LABS: MYOGLOBIN 164 ng/mL (0 - 121)
[2019-08-22] MEDS ORDERED: RIVASTIGMI9.5 MG/24 TD (19:53)
[2019-08-22] MEDS ORDERED: TRELEGY ELLIPTA1 AER PO (19:56)
== END 2019-08-22 20:25 | disposition short-term general hospital (02) ==
PROVIDERS: Emergency Medicine
PROC: 0T9B70Z Drainage of Bladder with Drainage Device, Via Natural or Artificial Opening (ICD-10-PCS; principal; 2019-08-22)
DX: S06.5X9A Traumatic subdural hemorrhage with loss of consciousness of unspecified duration, initial encounter (principal); I10 Essential (primary) hypertension; G30.9 Alzheimer's disease, unspecified; G20 Parkinson's disease; F02.80 Dementia in other diseases classified elsewhere, unspecified severity, without behavioral disturbance, psychotic disturbance, mood disturbance, and anxiety; W19.XXXA Unspecified fall, initial encounter; Y92.71 Barn as the place of occurrence of the external cause